=== PATIENT | female | born 1955 | race Caucasian/White ===

== ENCOUNTER → 2020-07-21 12:56 | Outpatient (CLI) | payer BC, SELFPAY ==
--- NOTE | 2020-07-21 12:59 | DI.MRI.S_ITS ---
PROCEDURE: MR KNEE RT WO CON INDICATIONS: Pain in right knee TECHNIQUE: Noncontrast sagittal PD fast spin echo and T2 fast spin echo with fat saturation, sagittal 3-D FLASH with fat saturation; coronal T1 spin echo and PD fast spin echo with fat saturation, and axial PD fast spin echo with fat saturation through the knee. COMPARISON: None. FINDINGS: Menisci: Lateral meniscal tear involving the body, with partial extrusion. There is abnormal ill-defined signal extending to the periphery, and free margin. There is truncated appearance of the free margin. Medial meniscal tear also noted involving the body with oblique linear intrasubstance signal change which extends to the periphery and undersurface. There is slight partial extrusion. There is also slight truncation/radial tear involving the posterior horn on image 21/11 Cruciate ligaments: Anterior cruciate ligament appears intact. Posterior cruciate ligament appears intact. Medial structures: There is medial bowing of the medial collateral ligament, with mild internal signal changes and no complete rupture. There is adjacent soft tissue edema. The appearance could reflect reactive changes to medial compartment pathology, versus low-grade sprain of the MCL. Pes anserinus tendons appear grossly unremarkable. Semimembranosus tendon appears intact. Lateral structures: The lateral collateral ligament demonstrates thickening and intrasubstance signal change in keeping with low grade sprain, statistically chronic, although technically age indeterminate. Biceps femoris tendon appears intact. Popliteus tendon grossly unremarkable. Iliotibial band appears intact. Anterior structures: Quadriceps tendon intact. Medial and lateral patellofemoral ligaments intact. There is mild patellar tendinopathy. Prepatellar and superficial infrapatellar subcutaneous edema/fluid. Bones and cartilage: Marrow: No focal marrow contusion or discrete low signal fracture line. Medial compartment: Diffuse partial-thickness loss of the femoral and tibial cartilage. Lateral compartment: Near full-thickness loss of the tibial cartilage closer to the tibial eminence. There is diffuse partial-thickness loss and surface fraying of the femoral cartilage. Patellofemoral compartment: Diffuse partial-thickness loss of the patellar cartilage with subchondral marrow edema involving the lateral patellar facet. Femoral trochlear cartilage appears intact. Joint space: Moderate to large joint effusion. Large Long's cyst which measures 58.7 cm in the cephalocaudal dimension. No specific evidence of intra-articular loose body. IMPRESSION: Lateral meniscal tear involving the body with partial extrusion, and marked truncated appearance of the free margin Medial meniscal tear involving the body with slight partial extrusion with adjacent MCL changes as above. Tricompartmental joint degeneration Moderate to large joint effusion Large Long's cyst Mild patellar tendinopathy with adjacent fluid/edema. Dictated by: Denver No M.D. on 07/22/2020 at 9:18 Approved by: Denver No M.D. on 07/22/2020 at 9:39
== END ==
PROVIDERS: PCP Specialist; Referring Provider Family Medicine; Visit Provider Family Medicine
DX: M25.561 Pain in right knee (principal); S83.281A Other tear of lateral meniscus, current injury, right knee, initial encounter; S83.241A Other tear of medial meniscus, current injury, right knee, initial encounter; M17.11 Unilateral primary osteoarthritis, right knee; M25.461 Effusion, right knee; M71.21 Synovial cyst of popliteal space [Baker], right knee
CPT/HCPCS: 73721

== ENCOUNTER → 2021-01-15 15:30 | Outpatient (CLI) | payer BC, SELFPAY ==
[2021-01-19 20:27] LABS: Ca oxalate dihydrate 20 % (.); Ca oxalate monohydr 80 % (.); Size 3x3 mm (.)
== END ==
PROVIDERS: PCP Specialist; Visit Provider Urology
DX: N20.0 Calculus of kidney (principal); E86.0 Dehydration
CPT/HCPCS: 81002; 82365

== ENCOUNTER → 2021-11-23 07:27 | Outpatient (CLI) | payer MEDICARE, BC, SELFPAY ==
--- NOTE | 2021-11-23 07:30 | DI.RAD.S_ITS ---
PROCEDURE: XR KUB INDICATIONS: Kidney stone TECHNIQUE: One view of the abdomen acquired. COMPARISON: Outside Facility, RG, CT ABDOMEN/PELVIS WITHOUT CONTRAST, 12/30/2020, 13:56. FINDINGS: Surgical changes and devices: None. Bowel: Bowel gas pattern is normal. Soft tissues: Possible tiny calcifications projecting over both kidneys, although renal shadows are obscured by bowel gas. Multiple calcifications are seen in the pelvis that most likely represent phleboliths. Visualized solid organ contours appear normal in size. Bones: No suspicious bony lesions. Degenerative changes are seen in the spine at the lumbosacral junction. IMPRESSION: 1. Previously seen tiny renal calculi are likely present, but partially obscured by overlying bowel gas. 2. Multiple phleboliths are seen in the pelvis, some of which project over the bladder and a bladder calculus is not excluded. Dictated by: Eligio Post M.D. on 11/23/2021 at 9:40 Approved by: Eligio Post M.D. on 11/23/2021 at 9:46
== END ==
PROVIDERS: PCP Student in an Organized Health Care Education/Training Program; Referring Provider Urology; Visit Provider Urology
DX: N20.0 Calculus of kidney (principal); I87.8 Other specified disorders of veins
CPT/HCPCS: 74018

== ENCOUNTER → 2022-05-26 15:22 | Outpatient (CLI) | payer MEDICARE, BC, SELFPAY ==
--- NOTE | 2022-05-26 15:23 | DI.RAD.S_ITS ---
PROCEDURE: XR KUB INDICATIONS: kidney stones TECHNIQUE: One view of the abdomen acquired. COMPARISON: [facility], CR, XR KUB, 11/23/2021, 7:32. FINDINGS: Surgical changes and devices: None. Bowel: Bowel gas pattern is normal. Soft tissues: No suspicious abdominal calcifications. Multiple phleboliths project over the lower pelvis which are stable compared to the prior exam. Visualized solid organ contours appear normal in size. Bones: No suspicious bony lesions. IMPRESSION: No definite renal stone by plain film radiograph. Dictated by: Georgiana Patel MD, PhD on 05/26/2022 at 16:29 Approved by: Georgiana Patel MD, PhD on 05/26/2022 at 16:30
== END ==
PROVIDERS: PCP Student in an Organized Health Care Education/Training Program; Referring Provider Urology; Visit Provider Urology
DX: N20.0 Calculus of kidney (principal)
CPT/HCPCS: 74018

== ENCOUNTER → 2023-03-20 13:35 | Outpatient (CLI) | payer MEDICARE, BC, SELFPAY ==
--- NOTE | 2023-03-20 | DI.MRI.S_ITS ---
PROCEDURE: MR SHOULDER RT WO CON INDICATIONS: Unspecified injury of right shoulder and upper arm TECHNIQUE: Noncontrast oblique coronal T2 fast spin echo with fat saturation, oblique sagittal T1 spin echo and T2 fast spin echo with fat saturation, axial T1 spin echo and T2 fast spin echo with fat saturation through the shoulder. COMPARISON: None. FINDINGS: Image quality: Excellent. Rotator cuff: Full-thickness tearing of the supraspinatus tendon and the infraspinatus tendon from their distal insertions with proximal tendon retraction measuring up to 3.9 cm. There is mild edema within the supraspinatus and infraspinatus muscles suggesting low-grade strains. There is also mild grade 2 infiltration of the supraspinatus and infraspinatus muscles. The teres minor tendon is intact. There is mild edema within the teres minor muscle. Moderate subscapularis tendinosis. Bones and bursae: No acute trabecular bone injury or fracture. No focal glenohumeral cartilage defect is seen. Moderate degenerative changes are seen at the acromioclavicular joint with subchondral cystic changes, subchondral edema, marginal osteophyte formation. A large glenohumeral effusion communicates with the subacromial/subdeltoid bursa. Capsule and soft tissues: There is mild diffuse labral degeneration. Proximal biceps long head tendon demonstrates moderate tendinosis. Glenohumeral ligaments appear to be intact. Mild edema is seen within the deltoid muscle. IMPRESSION: 1. Complete full-thickness tearing of the supraspinatus and infraspinatus tendons from their distal insertions with proximal tendon retraction measuring up to 3.9 cm. 2. Moderate subscapularis tendinosis. 3. Mild edema within the supraspinatus, infraspinatus, and teres minor muscles as well as the deltoid muscle is suspicious for low-grade muscle strains. 4. Moderate proximal biceps long head tendinosis. 5. Moderate acromioclavicular joint osteoarthrosis. 6. Large glenohumeral effusion communicates with the subacromial/subdeltoid bursa. Approved by: Eligio Post M.D. on 03/22/2023 at 13:29
== END ==
LOC: MRI 13:36
PROVIDERS: PCP Student in an Organized Health Care Education/Training Program; Referring Provider Family Medicine; Visit Provider Family Medicine
DX: S46.011A Strain of muscle(s) and tendon(s) of the rotator cuff of right shoulder, initial encounter (principal); M19.011 Primary osteoarthritis, right shoulder; M25.411 Effusion, right shoulder
CPT/HCPCS: 73221